=== PATIENT | male | born 1990 | race African-American/Black ===

== ENCOUNTER 2024-03-10 12:37 | Emergency (ER) | payer OTHER ==
[2024-03-10 12:40] VITALS: PULSE 83; RESP 16; O2SAT 96
[2024-03-10 14:50] LABS: BASOPHILS % 0.6 % (0.0-2.0); EOSINOPHILS % 1.6 % (0.0-5.0); HEMATOCRIT. 40.8 % (42.0-52.0); HEMOGLOBIN. 12.8 g/dL (14.0-18.0); LYMPHOCYTES % 29.4 % (20.0-50.0); MEAN CORPUSCULAR HEMOGLOBIN 26.4 pg (28.0-32.0); MEAN CORPUSCULAR HGB CONC 31.5 g/dL (31.0-37.0); MEAN CORPUSCULAR VOLUME 83.6 fL (80.0-94.0); MEAN PLATELET VOLUME 8.5 fl (7.4-10.4); NEUTROPHILS % 61.4 % (40.0-76.0); PLATELET 225 x1000/uL (130-400); RED BLOOD CELL COUNT 4.88 mill/uL (4.7-6.1); RED CELL DISTRIBUTION WIDTH 12.4 % (11.6-14.6)
[2024-03-10 14:56] LABS: CHLORIDE 103 mEq/L (98-107); SODIUM 140 mEq/L (136-145)
[2024-03-10 14:57] LABS: CARBON DIOXIDE 30 mEq/L (21-32)
[2024-03-10 14:58] LABS: CALCIUM 9.9 mg/dL (8.7-10.4)
[2024-03-10 15:02] LABS: CREATININE 1.2 mg/dL (0.6-1.3); GLUCOSE 69 mg/dL (70-105)
[2024-03-10 15:03] LABS: UREA NITROGEN BLOOD 8 mg/dL (9-23)
[2024-03-10 15:18] LABS: TROPONIN I HIGH SENSITIVITY < 4 ng/L (3.0-53)
[2024-03-10] MEDS ORDERED: IBUP-2029 MT (15:30)
== END 2024-03-10 16:24 | disposition home or self-care (01) ==
LOC: ER 12:37
DX: R07.89 Other chest pain (principal)
CPT/HCPCS: 36415; 71045; 80048; 84484; 85025; 93005; 99285